=== PATIENT | male | born 1955 | race Hispanic/Latino ===

== ENCOUNTER 2020-05-13 09:10 | Emergency (ER) | payer SELFPAY ==
--- NOTE | 2020-05-13 09:23 | ED.PDOC ---
History of Present Illness - General Time Seen by Provider: 05/13/20 09:11 Source: patient, RN notes reviewed, Vital Signs reviewed, family - History of Present Illness Initial Comments: 64 yo male with unknown history was in restroom when he felt weak and fell in bathroom floor Family found him against wall in bathroom. Patient has been feeling ill for the past week. NO chest pain, denies dizziness, shortness of breath. Just extreme fatigue. Has been having cold like symptoms for the past week per grandson. GCS originally 10 when first arrived. Now GCS 13. no recent travel. Lives with , children and grandson, none who have been sick. Occurred: just prior to arrival Allergies/Adverse Reactions: Allergies NO KNOWN ALLERGY Allergy (Verified 05/13/20 09:56) Home Medications: Ambulatory Orders NK 05/13/20 Review of Systems - Review of Systems Constitutional: States: malaise. Denies: chills, fever, weakness EENTM: States: throat pain. Denies: mouth pain Respiratory: Denies: cough, short of breath Cardiology: Denies: chest pain, palpitations Gastrointestinal/Abdominal: Denies: abdominal pain, diarrhea, nausea, vomiting Genitourinary: Denies: discharge, frequency Musculoskeletal: Denies: back pain, muscle pain, neck pain Skin: Denies: rash Neurological: Denies: headache, numbness, seizure, weakness Endocrine: Denies: unexplained weight gain, unexplained weight loss Hematologic/Lymphatic: Denies: easy bleeding, easy bruising Past Medical History (General) - Patient Medical History Hx Seizures: No Hx Stroke: No Hx Dementia: No Hx Asthma: No Hx of COPD: No Hx Cardiac Disorders: No Hx Congestive Heart Failure: No Hx Pacemaker: No Hx Hypertension: No Hx Thyroid Disease: No Hx Diabetes: No Hx Gastroesophageal Reflux: No Hx Renal Disease: No Hx Cancer: No Hx of HIV: No Hx Hepatitis B: No Hx Hepatitis C: No Hx MRSA: No Hx Other PMH: No Surgical History: no surgical history Physical Exam - Physical Exam General Appearance: Comfortable, No apparent distress, Lethargic, Well Developed, Well Groomed, Well Hydrated, Well Nourished Head Injury: no evidence of injury, other - no sylvester sign or raccoon eyes Eye Exam: bilateral normal, bilateral abnormal EOM ENT Exam: hearing grossly normal, no evidence of ENT injury, no dental injury, other - no hemotypmanum Peripheral Pulses: radial,right: 2+, radial,left: 2+ Cardiovascular/Respiratory: no M/R/G, normal peripheral pulses, no JVD, normal breath sounds, no respiratory distress, bradycardia Gastrointestinal/Abdominal: normal bowel sounds, non tender, soft, no organomegaly, no pulsatile mass Back Exam: normal inspection, no CVA tenderness, no vertebral tenderness Extremity Exam: no evidence of injury, normal range of motion, non-tender, no pedal edema, pelvis stable 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 I feel his syncope was secondary to dehydration and generalized weakness from covid. Recommend follow up on bradycardia. I do not feel patient underwent cardiac syncope. Orthostatics slightly positive with an increase in HR, but no change in BP. Given 1.5 L NS bolus. He was much more alert after the fluids. patient does not have pcp will refer to one. The data reviewed when caring for this patient included: nurse notes, prior records, etc. The history and assessments from nurses notes were reviewed and considered, and the patient's home medication list was also reviewed and considered. My assessment and the results of testing completed here in the ED were discussed with the patient/family. All questions were answered, and they express understanding of my assessment and the plan. They have been instructed to return if their symptoms worsen, and have been asked to follow up with their primary care physician to recheck today's presenting complaint. Strict return precautions given. Jaylin Bunn DO #[id number] 05/13/20 11:07 05/13/20 11:08 - EKG/XRAY/CT EKG: Jez, Sinus Comments: nonspecific ST changes, no prior for comparision, no stemi. XRAY: chest - no acute cardiopulmonary pathology CT: head no acute ICH or IC pathology Departure - Departure Clinical Impression: Sinus bradycardia, COVID-19 Time of Disposition: 10:40 Disposition: Discharge to Home or Self Care Instructions: Bradycardia, Bradycardia (DC), Coronavirus Disease 2019 (COVID- 19) Diet: resume usual diet Activity: increase activity as tolerated Referrals: Bay Us MD [Provisional Staff] - 1-5 Days Home Medications: Ambulatory Orders NK 05/13/20 Print Language: Malaysian
[2020-05-13] MEDS ORDERED: SODIUM CHLORIDE 0.9% 1000ML 1,000 ML IVS ONE (09:27)
--- NOTE | 2020-05-13 09:47 | CT ---
EXAM DESCRIPTION: Head CLINICAL HISTORY: confusion COMPARISON: None available TECHNIQUE: Non contrast cranial CT.This exam was performed according to our departmental dose-optimization program, which includes automated exposure control, adjustment of the mA and/or kV according to patient size and/or use of iterative reconstruction technique. FINDINGS: Ventricles and sulci are unremarkable. There is no hemorrhage or mass. There are no white matter abnormalities detected. The calvarium is unremarkable. The visualized paranasal sinuses and the mastoids are clear. IMPRESSION: Normal CT head Electronically signed by: Keagan Chambers MD 05/13/2020 9:46 AM SHAREPOINT ADMINISTRATOR
--- NOTE | 2020-05-13 09:51 | RAD ---
EXAM DESCRIPTION: Chest,1 View CLINICAL HISTORY: 64 years Male, syncope COMPARISON: None. TECHNIQUE: AP portable chest. FINDINGS: Heart size is normal with normal pulmonary vascularity. No consolidating infiltrate. No pulmonary mass or worrisome nodule. No pneumothorax or pleural effusion. Bones are unremarkable. IMPRESSION: No acute process is identified in the chest. Electronically signed by: Lion Banda MD 05/13/2020 9:50 AM VOLTAGE REGULATOR ASSEMBLER
[2020-05-13] MEDS ORDERED: SODIUM CHLORIDE 0.9% 500ML 500 ML IVS ONE (10:39)
[2020-05-13] MEDS ORDERED: DEXAMETHASONE INJ 10 MG/ML VIAL IV ONE (10:39)
[2020-05-13 11:38] VITALS: BP 144/80; TEMP 97.5; O2SAT 98
== END 2020-05-13 11:30 | disposition home or self-care (01) ==
LOC: ER 09:10
DX: U07.1 COVID-19 (principal); R00.1 Bradycardia, unspecified; R55 Syncope and collapse; W19.XXXA Unspecified fall, initial encounter; Y92.89 Other specified places as the place of occurrence of the external cause
CPT/HCPCS: 36415; 70450; 71045; 80053; 82948; 83605; 83880; 84443; 84484; 85025; 85610; 85730; 87502; 87635; 93005; J1100; J7030; J7040

== ENCOUNTER 2020-05-21 11:41 | Inpatient (IN) | payer SELFPAY ==
[2020-05-21] MEDS ORDERED: SODIUM CHLORIDE 0.9% 1000ML 1,000 ML IVS ONE (11:55)
--- NOTE | 2020-05-21 12:23 | RAD ---
EXAM: Chest,1 View INDICATION: 64 years Male, syncope COMPARISON: Single view of the chest 05/13/2020 FINDINGS: Single view of the chest was performed. Heart size is within normal limits. Low lung volumes. Bilateral peripheral groundglass pulmonary infiltrates have developed in the midlung bilaterally. No pleural effusion. No pneumothorax. The osseous structures are intact. Unremarkable appearance of the visualized upper abdomen. IMPRESSION: Bilateral groundglass pulmonary infiltrates. Imaging features can be seen with COVID-19 pneumonia, though are nonspecific and can occur with a variety of infectious and noninfectious processes. [PneInd] Electronically signed by: Deidra Garcia MD 05/21/2020 12:22 PM [facility]
[2020-05-21] MEDS ORDERED: REMDESIVIR 200 MG in SODIUM CHLORIDE 0.9% 250ML 250 ML IVPB ONE (13:32)
[2020-05-21] MEDS ORDERED: DEXAMETHASONE INJ 4 MG/ML VIAL IV ONE (13:32)
[2020-05-21] MEDS ORDERED: cefTRIAXone SODIUM 1 GM in SODIUM CHL 0.9% 50ML MIN-BAG+ 50 ML IVPB ONE (13:32)
[2020-05-21] MEDS ORDERED: AZITHROMYCIN IV 500 MG in SODIUM CHLORIDE 0.9% 250ML 250 ML IVPB ONE (13:32)
--- NOTE | 2020-05-21 13:44 | ED.PDOC ---
History of Present Illness - General Chief Complaint: Trauma Stated Complaint: fall Time Seen by Provider: 05/21/20 11:45 Source: patient Exam Limitations: no limitations - History of Present Illness Initial Comments: The patient is a 64-year-old male presented emergency room after having a syncopal versus near syncopal event this morning at his house. He was seen about a week ago for the same problem and was diagnosed with coronavirus. The difference today is that the patient is actually hypoxic on room air at rest. The patient is drowsy upon arrival but he does know where he is and what is going on. He is uncertain if he hit his head. He is not having any head or neck pain. He has been having some back and chest discomfort with coughing for the last 3 days. No other falls according to him. He denies other significant past medical history. He was noted to be bradycardic at his last visit but is not today. He does have scattered rhonchi on lung exam but appears to be moving air pretty well. He reports a very thick sputum. He reports having to cough very hard to move anything up and is possible that today his near syncopal event may have been caused by coughing forcefully. He is pleasant and cooperative. No acute distress currently. Oxygen saturations dropped down to around 85% on room air at rest periodically. On average is a are around 88 to 89% on room air. He does correct well with 2 L. Timing/Duration: unsure Severity: moderate Improving Factors: nothing Worsening Factors: other - Coughing Associated Symptoms: chest pain, cough, malaise Allergies/Adverse Reactions: Allergies NO KNOWN ALLERGY Allergy (Verified 05/21/20 12:21) Home Medications: Ambulatory Orders NK 05/13/20 Review of Systems - Review of Systems Constitutional: States: malaise, weakness - Generalized EENTM: States: no symptoms reported Respiratory: States: cough Cardiology: States: chest pain - Musculoskeletal Gastrointestinal/Abdominal: States: no symptoms reported Genitourinary: States: no symptoms reported Musculoskeletal: States: see HPI Skin: States: no symptoms reported Neurological: States: see HPI Endocrine: States: no symptoms reported All other Systems: No Change from Baseline Past Medical History (General) - Patient Medical History Hx Seizures: No Hx Stroke: No Hx Dementia: No Hx Asthma: No Hx of COPD: No Hx Cardiac Disorders: No Hx Congestive Heart Failure: No Hx Pacemaker: No Hx Hypertension: No Hx Thyroid Disease: No Hx Diabetes: No Hx Gastroesophageal Reflux: No Hx Renal Disease: No Hx Cancer: No Hx of HIV: No Hx Hepatitis C: No Hx MRSA: No Surgical History: no surgical history - Vaccination History Hx Tetanus, Diphtheria Vaccination: No Hx Influenza Vaccination: No Hx Pneumococcal Vaccination: No - Social History Hx Tobacco Use: No Hx Alcohol Use: No Family Medical History - Family History Mother Family History: Unknown Living Status: Unknown Physical Exam - Physical Exam General Appearance: Agitated, No apparent distress, Other - The patient is very drowsy Eye Exam: bilateral normal Ears, Nose, Throat: hearing grossly normal, normal pharynx Neck: full range of motion, supple Respiratory: no respiratory distress, no accessory muscle use, rhonchi Cardiovascular/Chest: normal peripheral pulses, regular rate, rhythm, no edema Peripheral Pulses: radial,right: 2+, radial,left: 2+ Gastrointestinal/Abdominal: non tender, soft Rectal Exam: deferred Back Exam: no CVA tenderness, no vertebral tenderness Extremity: normal range of motion, non-tender, normal inspection, no pedal edema, normal capillary refill 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, alert, normal mood/affect, oriented x 3 Skin Exam: normal color Comments: Vital Signs - 24 hr 05/21/20 05/21/20 05/21/20 11:48 11:50 12:10 Temperature 98.5 F Pulse Rate [ 133 H Left Radial] Respiratory 20 20 Rate Blood Pressure 133/64 [Right Arm] O2 Sat by Pulse 97 90 L Oximetry 05/21/20 05/21/20 05/21/20 13:26 13:27 13:29 Temperature Pulse Rate [ 76 70 66 Left Radial] Respiratory 22 22 24 Rate Blood Pressure 113/81 114/73 120/70 [Right Arm] O2 Sat by Pulse 96 98 96 Oximetry Progress - Progress Progress: 05/21/20 13:46 The patient is a 64-year-old male presented this morning secondary to a near syncopal episode. The patient had 1 of these about a week ago as well when he was diagnosed with coronavirus. He is now hypoxic however. He is correcting well with supplemental oxygen. The patient will be admitted for management of above. I do believe that it would be worthwhile to have the patient on telemetry monitoring to make sure he is not having periodic episodes of arrhythmia that can be causing her syncopal events. The patient is being started on Rocephin, azithromycin, remdesivir and dexamethasone. The patient may benefit from a trial of nebulizer treatments and possibly Mucomyst inhaled treatments to thin out the secretions to improve the cough. Admit for further care and monitoring. sharona bryan [phone] - Results/Orders Results/Orders: Chest x-ray shows scattered infiltrates consistent with coronavirus. EKG patient does normal sinus rhythm at 63 bpm. Normal axis. Normal R wave progression. Mild left atrial dilation. No ST segment or T wave changes indicative of acute ischemia. Normal QT interval. Laboratory Tests 05/21/20 05/21/20 05/21/20 11:50 11:50 11:50 WBC 7.6 RBC 5.26 Hgb 15.6 Hct 46.1 MCV 87.6 MCH 29.7 MCHC 33.9 RDW 13.6 Plt Count 230 MPV 7.4 Absolute Neuts (auto) 6.10 Absolute Lymphs (auto) 1.20 Absolute Monos (auto) 0.30 Absolute Eos (auto) 0.00 Absolute Basos (auto) 0.10 Neutrophils % 79.2 H Lymphocytes % 15.2 L Monocytes % 4.3 Eosinophils % 0.1 L Basophils % 1.2 PT INR PTT (SP) Fibrinogen D-Dimer, Quantitative Sodium 134 L Potassium 4.6 Chloride 94 L Carbon Dioxide 27 Anion Gap 17.6 BUN 12 Creatinine 1.03 BUN/Creatinine Ratio 11.7 Random Glucose 214 H Serum Osmolality 274.4 L Lactic Acid Calcium 8.4 Magnesium 2.2 Ferritin 286.7 Total Bilirubin 0.9 AST 62 H ALT 47 Alkaline Phosphatase 77 LD Total 253 H Creatine Kinase 308 H* CK-MB (CK-2) 0.8 CK-MB (CK-2) % Not Reportable Troponin I < 0.02 C-Reactive Protein 8.2 H* B-Natriuretic Peptide < 15.0 Serum Total Protein 7.7 Albumin 3.5 Globulin 4.2 H Albumin/Globulin Ratio 0.8 L TSH 4.72 Urine Color Urine Appearance Urine pH Ur Specific [place] Urine Protein Urine Glucose (UA) Urine Ketones Urine Blood Urine Nitrite Urine Bilirubin Urine Urobilinogen Ur Leukocyte Esterase Urine RBC Urine WBC Ur Epithelial Cells Amorphous Sediment Urine Bacteria Urine Mucus 05/21/20 05/21/20 05/21/20 11:50 11:50 13:20 WBC RBC Hgb Hct MCV MCH MCHC RDW Plt Count MPV Absolute Neuts (auto) Absolute Lymphs (auto) Absolute Monos (auto) Absolute Eos (auto) Absolute Basos (auto) Neutrophils % Lymphocytes % Monocytes % Eosinophils % Basophils % PT 10.3 INR 1.04 PTT (SP) 28.6 Fibrinogen 614 H D-Dimer, Quantitative 322.0 Sodium Potassium Chloride Carbon Dioxide Anion Gap BUN Creatinine BUN/Creatinine Ratio Random Glucose Serum Osmolality Lactic Acid 1.7 Calcium Magnesium Ferritin Total Bilirubin AST ALT Alkaline Phosphatase LD Total Creatine Kinase CK-MB (CK-2) CK-MB (CK-2) % Troponin I C-Reactive Protein B-Natriuretic Peptide Serum Total Protein Albumin Globulin Albumin/Globulin Ratio TSH Urine Color Yellow Urine Appearance Clear Urine pH 7.0 Ur Specific [place] 1.020 Urine Protein 30 Urine Glucose (UA) Negative Urine Ketones Trace Urine Blood Negative Urine Nitrite Negative Urine Bilirubin Negative Urine Urobilinogen 4.0 H Ur Leukocyte Esterase Negative Urine RBC 0 Urine WBC 1-3 Ur Epithelial Cells 0-1 Amorphous Sediment Trace Urine Bacteria 0 Urine Mucus Trace Departure - Departure Clinical Impression: Pneumonia due to human coronavirus, Syncope, near Disposition: Admit Patient Departure Forms: ED Discharge - Pt. Copy, Patient Portal Self Enrollment Home Medications: Ambulatory Orders NK 05/13/20 Decision To Admit - Decistion To Admit Decision to Admit Reason: Medical Nature Decision to Admit Date: 05/21/20 Decision to Admit Time: 13:48
--- NOTE | 2020-05-21 14:02 | HP ---
SUPERVISING PHYSICIAN: Russel Jacobson MD CHIEF COMPLAINT: Passing out at home. HISTORY OF PRESENT ILLNESS: This is a 64 year-old male patient who came to the Emergency Room today after having a syncopal versus near syncopal episode. It was not witnessed and he was not sure if he actually passed out or not. He was seen in the Emergency Room about a week ago for the same problem and was diagnosed with coronavirus at that time. His electrolytes were fairly stable and his labs were fairly stable but at this visit his labs are unremarkable but he is in the mid to upper 80s on room air. He is on 2 liters nasal cannula. He does correct to the low 90s for is 02 saturations. He has had a cough with thick tenacious sputum. His labs show a CBC that is unremarkable other than he has a mild left shift on his differential. Fibrinogen is 614, D-dimer 322. Sodium is slightly low at 134 with a chloride of 94, glucose 214, lactic acid 1.7. AST was 62, LD 253, creatinine kinase 301. Troponin less than 0.02. C- reactive protein 8.2, TSH of 4.72. Urinalysis was unremarkable. Urine drug screen was negative. Sputum sample for culture was taken. Blood cultures were drawn. Chest x-ray shows bilateral ground glass pulmonary infiltrates, imaging features can be sen with Covid-19 pneumonia. He was given azithromycin, Rocephin, Remdesivir and Decadron in the Emergency Room. Due to his hypoxia, I was called for admission. The patient is mostly Portuguese speaking but he does understand simple questions that are asked in [place] Citizen and most of the history was taken from hid daughter. PAST MEDICAL HISTORY: None. PAST SURGICAL HISTORY: None. CURRENT MEDICATIONS: None. ALLERGIES: NO KNOWN DRUG ALLERGIES. FAMILY HISTORY: SOCIAL HISTORY: He lives in [place], he is . He denies any tobacco use. He quit drinking alcoholic beverages approximately 30 years ago. REVIEW OF SYSTEMS: GENERAL: Positive for fatigue, negative for fever, chills or weight changes. HEENT: Negative for sinus symptoms, ear pain, vision changes, sore throat. RESPIRATORY: Positive for cough and shortness of breath, negative for wheezing. CARDIAC: Negative for chest pain, palpitations, tachycardia. GI: Negative for nausea, vomiting or diarrhea or constipation. GENITOURINARY: Negative for hematuria, dysuria, polyuria. MUSCULOSKELETAL: Negative for arthralgias, myalgias. SKIN: Negative for lesions or rashes. NEUROLOGICAL: As per the history of present illness. Negative for seizures. PHYSICAL EXAMINATION: VITAL SIGNS: Temperature 100.5, heart rate 73, blood pressure 120/76, respiratory rate 30, oxygen saturation 94% on 3 liters nasal cannula. GENERAL: This is a 64 year-old male patient who is lying in his hospital bed. He is in no acute distress. HEENT: Normocephalic and atraumatic. Pupils are equal and reactive. Oropharynx is clear. NECK: Supple with full range of motion. CHEST: Scattered rhonchi throughout. No wheezes noted. He is tachypneic that worsens with exertion. CARDIOVASCULAR: Regular rate and rhythm. ABDOMEN: Soft, nondistended, non-tender. Bowel sounds positive. EXTREMITIES: No cyanosis, clubbing, or edema. NEUROLOGIC: He is awake, alert, and oriented x. Cranial nerves II through XII are grossly intact as tested. SKIN: [place], warm and dry. Labs and films are as per the history of present illness. ASSESSMENT: 1. Covid-19 pneumonitis. 2. Syncopal versus near syncopal episode secondary to hypoxia. PLAN: The patient has been admitted to the hospital. He has been placed on the Covid protocol with labs, Remdesivir, azithromycin and Decadron. He will have Lovenox for DVT prophylaxis and a PPI for ulcer prophylaxis. I have also ordered align and guaifenesin. He will have aggressive pulmonary hygiene and p.r.n. and scheduled albuterol, titrate his oxygen off as tolerated. Will monitor and treat as needed. #[id number] [facility]
[2020-05-21] MEDS ORDERED: ACETAMINOPHEN 325 MG TAB PO PRN (15:35)
[2020-05-21] MEDS ORDERED: SODIUM CHLORIDE 0.9% (FLUSH) 10 ML SYG ONE (16:38)
[2020-05-21] MEDS ORDERED: SODIUM CHLORIDE 0.9% (FLUSH) 10 ML SYG IV PRN (16:45)
[2020-05-21] MEDS ORDERED: ONDANSETRON INJ 4 MG/2 ML VIAL IV PRN (16:45)
[2020-05-21] MEDS ORDERED: ALBUTEROL INHALER 64 PUFF/8GM INH PRN (16:53)
[2020-05-21] MEDS ORDERED: IV SET AND CAP CHANGE INJ INJ SCH (17:00)
[2020-05-21] MEDS: ALBUTEROL INHALER 64 PUFF/8GM INH SCH (19:45)
[2020-05-21] MEDS: ENOXAPARIN SODIUM 40 MG/0.4 ML SYG SUBCU SCH (20:42)
[2020-05-21] MEDS: guaiFENesin ER TAB 600 MG TAB PO SCH (20:42)
[2020-05-21] MEDS: SODIUM CHLORIDE 0.9% (FLUSH) 10 ML SYG IV SCH (20:42)
[2020-05-21] MEDS: BIFIDOBACTERIUM INFANTIS 4 MG CAP PO SCH (20:42)
[2020-05-22] MEDS ORDERED: PANTOPRAZOLE SODIUM IV 40 MG VIAL ONE (04:39)
[2020-05-22] MEDS ORDERED: PANTOPRAZOLE SODIUM IV 40 MG VIAL IV SCH (06:30)
--- NOTE | 2020-05-22 06:42 | RAD ---
EXAM: XR CHEST 1 VIEW HISTORY: 64 years, Male, covid TECHNIQUE: Chest,1 View COMPARISON: May 21, 2020 FINDINGS: Normal mediastinal cardiac silhouette. Again seen are linear opacities in the peripheral mid lung rodríguez nonspecific possible infectious process and/or atelectatic in etiology. No effusions. No acute findings in the osseous structures. IMPRESSION: No significant change. Electronically signed by: Chikis Benavides MD 05/22/2020 6:40 AM DESK DIRECTOR
[2020-05-22] MEDS ORDERED: cefTRIAXone SODIUM 1 GM VIAL ONE (08:20)
[2020-05-22] MEDS ORDERED: SODIUM CHLORIDE 0.9% 250ML 250 ML ONE ×2 (08:20→10:02)
[2020-05-22] MEDS ORDERED: SODIUM CHL 0.9% 50ML MIN-BAG+ 50 ML IVPB ONE (08:20)
[2020-05-22] MEDS ORDERED: AZITHROMYCIN IV 500 MG VIAL IVPB ONE (08:20)
[2020-05-22] MEDS: ALBUTEROL INHALER 64 PUFF/8GM INH SCH ×4 (08:25→20:27)
[2020-05-22] MEDS: cefTRIAXone SODIUM 1 GM in SODIUM CHL 0.9% 50ML MIN-BAG+ 50 ML IVPB SCH (08:28)
[2020-05-22] MEDS: BIFIDOBACTERIUM INFANTIS 4 MG CAP PO SCH ×2 (08:29→20:04)
[2020-05-22] MEDS: guaiFENesin ER TAB 600 MG TAB PO SCH ×2 (08:29→20:04)
[2020-05-22] MEDS: DEXAMETHASONE INJ 4 MG/ML VIAL IV SCH (08:29)
[2020-05-22] MEDS: SODIUM CHLORIDE 0.9% (FLUSH) 10 ML SYG IV SCH ×2 (08:57→20:05)
[2020-05-22] MEDS: AZITHROMYCIN IV 500 MG in SODIUM CHLORIDE 0.9% 250ML 250 ML IVPB SCH (09:00)
[2020-05-22] MEDS ORDERED: REMDESIVIR IV 100 MG VIAL ONE (10:02)
[2020-05-22] MEDS: REMDESIVIR 100 MG in SODIUM CHLORIDE 0.9% 250ML 250 ML IVPB SCH (11:06)
--- NOTE | 2020-05-22 18:50 | PN ---
SUPERVISING PHYSICIAN: Russel Jacobson MD DATE: 05/22/20 SUBJECTIVE: The patient looks to be comfortable. He is alert without any major complaint. He is still unaware if he actually passed out or not but has not been showing any neurological findings or deficits. I did review his Emergency Room record and they did show vital signs in the Emergency Room that were essentially within normal limits. He does remain afebrile. He is maintaining his 02 saturations on minimal oxygen requirements. OBJECTIVE: VITAL SIGNS: Temperature 98.4, pulse 57, blood pressure 117/84, respirations 18, oxygen saturation 92% on 2 liter nasal cannula. GENERAL: The patient is resting comfortably. He does not appear to be in any distress. CHEST: Lung sounds just a little diminished towards the bases, otherwise clear. HEART: Regular rate and rhythm. ABDOMEN: Soft, non-tender, positive bowel sounds. EXTREMITIES: Without edema. NEUROLOGICAL: No motor deficits are noted. Cranial nerves II through XII appear to be grossly intact. Facial features were symmetrical. Extraocular movements within normal limits. He alert and oriented x 3. SKIN: Warm, pink and dry. LABORATORY: White count 6,500, hemoglobin 14.8, hematocrit 42.9. Platelet count 210,000, differential shows to be without a left shift, just a low leukocyte count. Coagulation studies show normal D-dimer. PTT little elevated at 33.1, fibrinogen 623. Chemistries show normal electrolytes, creatinine 0.7. Hemoglobin A1c 5.8. Calcium 8.0 which corrects to 8.1 for albumin of 3.1. Liver functions show elevation of AST to 135, ALT 108, alkaline phosphatase remains within normal limits. C-reactive protein 8.2. MICROBIOLOGY: Blood cultures show no growth at 24 hours. Sputum culture pending. RADIOLOGY: Recent chest x-ray this morning per radiology interpretation single view chest shows no significant changes. Again seen are opacities in the peripheral mid lung rodríguez, nonspecific. ASSESSMENT: 1. Covid-19 pneumonitis. 2. Near syncopal episode likely secondary to hypoxia with no obvious neurological symptoms noted. PLAN: Will continue with Covid-19 protocol, labs, Remdesivir, azithromycin and Decadron, Lovenox and Protonix. I will start him on some Align. He is not showing any neurological symptoms, vital signs were normal in the Emergency Room but will go ahead and get an ultrasound on Sunday. I don't anticipate he will go home before then and will further evaluation his carotids. He does remain on telemetry and does not show any abnormal rhythms. We feel like most of his symptoms were probably due to hypoxia. He is still requiring a little oxygen. Will work to titrate that down as possible. I would anticipate probably at least another 48 hours of hospitalization. Until we can transition him to outpatient management, we will continue to monitor and treat as needed. #[id number] [facility]
[2020-05-22] MEDS ORDERED: BIFIDOBACTERIUM INFANTIS 4 MG CAP ONE (19:20)
[2020-05-22] MEDS ORDERED: ENOXAPARIN SODIUM 40 MG/0.4 ML SYG SUBCU ONE (19:21)
[2020-05-22] MEDS ORDERED: guaiFENesin ER TAB 600 MG TAB ONE (19:21)
[2020-05-22] MEDS: ENOXAPARIN SODIUM 40 MG/0.4 ML SYG SUBCU SCH (20:04)
[2020-05-23] MEDS: PANTOPRAZOLE SODIUM TAB 40 MG PO SCH (06:02)
[2020-05-23] MEDS: ALBUTEROL INHALER 64 PUFF/8GM INH SCH ×4 (08:41→20:55)
[2020-05-23] MEDS ORDERED: guaiFENesin ER TAB 600 MG TAB ONE ×2 (09:20→18:51)
[2020-05-23] MEDS ORDERED: BIFIDOBACTERIUM INFANTIS 4 MG CAP ONE ×2 (09:20→18:51)
--- NOTE | 2020-05-23 10:15 | RAD ---
EXAMINATION: Chest,1 View. HISTORY: 64 years Male. covid. . TECHNIQUE: XR CHEST 1 VIEW COMPARISON: 05/22/2020. FINDINGS: Linear opacity with small patchy component again noted in right midlung. Patchy and interstitial opacity again noted in left midlung laterally with slight consolidation. These bilateral infiltrates demonstrate relatively peripheral predominance. They are relatively unchanged. No evidence of pneumothorax. No radiographically visible pleural effusion. Cardiac silhouette size is normal without vascular congestion. No visible acute displaced fracture in the regional skeleton. IMPRESSION: Unchanged bilateral pulmonary infiltrates may again be secondary to edema and/or atelectasis. Differential again includes viral or bacterial pneumonia. While not specific, appearance can be seen with Covid-19 pneumonia. Electronically signed by: Wan Naik MD 05/23/2020 10:13 AM [facility]
[2020-05-23] MEDS: REMDESIVIR 100 MG in SODIUM CHLORIDE 0.9% 250ML 250 ML IVPB SCH (10:49)
[2020-05-23] MEDS: DEXAMETHASONE INJ 4 MG/ML VIAL IV SCH (10:49)
[2020-05-23] MEDS: guaiFENesin ER TAB 600 MG TAB PO SCH ×2 (10:49→20:14)
[2020-05-23] MEDS: BIFIDOBACTERIUM INFANTIS 4 MG CAP PO SCH ×2 (10:49→20:14)
[2020-05-23] MEDS: cefTRIAXone SODIUM 1 GM in SODIUM CHL 0.9% 50ML MIN-BAG+ 50 ML IVPB SCH (13:39)
[2020-05-23] MEDS: AZITHROMYCIN IV 500 MG in SODIUM CHLORIDE 0.9% 250ML 250 ML IVPB SCH (13:39)
[2020-05-23] MEDS: SODIUM CHLORIDE 0.9% (FLUSH) 10 ML SYG IV SCH ×2 (13:40→20:14)
--- NOTE | 2020-05-23 15:44 | PN ---
SUPERVISING PHYSICIAN: Russel Jacobson MD DATE: 05/23/20 SUBJECTIVE: The patient feels a little short of breath but nothing major. He has really not been around the room to fully assess his ambulation. Otherwise, he is still only requiring 2 liters to maintain 93 to 95% but again, that is at rest. OBJECTIVE: VITAL SIGNS: Temperature 98.2, pulse 56, blood pressure 117/69, respirations 18, oxygen saturation 93% on 2 liter nasal cannula. GENERAL: The patient is resting comfortably. He does not appear to be in any distress. CHEST: Lung sounds just diminished towards the bases. HEART: Regular rate and rhythm. ABDOMEN: Soft, non-tender, positive bowel sounds. EXTREMITIES: Without edema. NEUROLOGICAL: Alert and oriented x 3. LABORATORY: CBC shows to be stable with a white count of 8,700, hemoglobin 14.4, hematocrit 41.5. Platelet count 233,000, differential shows just a slight left shift. Coagulation studies show D-dimer remaining normal. Chemistries show anion gap a little elevated at 18.1, otherwise electrolytes within normal limits. Creatinine 0.78, calcium 8.2, magnesium 2.1, liver functions showing some elevation, again AST at 123, ALT is up to 146. C-reactive protein down to 4.1 from 8.2 on admission. MICROBIOLOGY: Sputum culture was cancelled due to 10 or greater epithelial cells indicating oropharyngeal contamination. Blood cultures remain negative at 48 hours. RADIOLOGY: Chest x-ray this morning per radiology interpretation single view chest shows unchanged pulmonary infiltrates secondary to edema and/or atelectasis with some patchy and interstitial opacities again noted in the mid lung, lateral and slight consolidation. ASSESSMENT: 1. Covid-19 pneumonitis. 2. Near syncopal episode likely secondary to hypoxia with no obvious neurological symptoms noted. PLAN: Will continue with current treatment plan with Remdesivir, azithromycin and Decadron, Levaquin and Protonix. He is on Align now. His neurological status remains stable. Will probably do carotids in the morning just given that he did have a questionable syncopal episode prior to admission. Will work to titrate his oxygen down. I anticipate hopefully being able to discharge probably tomorrow or at least by Sunday but until then, we will continue to monitor and treat as needed. #[id number] [facility]
[2020-05-23] MEDS ORDERED: ENOXAPARIN SODIUM 40 MG/0.4 ML SYG SUBCU ONE (18:51)
[2020-05-23] MEDS: ENOXAPARIN SODIUM 40 MG/0.4 ML SYG SUBCU SCH (20:14)
[2020-05-24] MEDS: PANTOPRAZOLE SODIUM TAB 40 MG PO SCH (06:28)
[2020-05-24] MEDS: ALBUTEROL INHALER 64 PUFF/8GM INH SCH ×2 (08:25→13:20)
[2020-05-24] MEDS: guaiFENesin ER TAB 600 MG TAB PO SCH (10:11)
[2020-05-24] MEDS: DEXAMETHASONE INJ 4 MG/ML VIAL IV SCH (10:11)
[2020-05-24] MEDS: BIFIDOBACTERIUM INFANTIS 4 MG CAP PO SCH (10:11)
[2020-05-24] MEDS: SODIUM CHLORIDE 0.9% (FLUSH) 10 ML SYG IV SCH (10:12)
[2020-05-24] MEDS: cefTRIAXone SODIUM 1 GM in SODIUM CHL 0.9% 50ML MIN-BAG+ 50 ML IVPB SCH (10:12)
[2020-05-24] MEDS: AZITHROMYCIN IV 500 MG in SODIUM CHLORIDE 0.9% 250ML 250 ML IVPB SCH (10:12)
--- NOTE | 2020-05-24 11:59 | US ---
EXAM DESCRIPTION: Carotid Duplex: ULTRASOUND. CLINICAL HISTORY: 64 years Male syncope COMPARISON: None. TECHNIQUE: Transcutaneous scanning utilizing ahumada-scale and Doppler modes to evaluate the bilateral carotid systems and vertebral arteries. Percentage of diameter of stenosis or no stenosis recorded will be based upon NASCET criteria. FINDINGS: Peak systolic/end diastolic velocities (CM-Sec) CCA Right 87/12 Left 88/18. ICA Right proximal 30/11, distal 42/18. Left proximal 55/10, mid 44/17.. Vertebral Right 31/10 Left 87/13. ECA (PS Only) Right 43 left 38. ICA/CCA peak systolic velocity ratio: Right 0.7 Left 0.6 ICA/CCA end diastolic velocity ratio: Right 1.5 Left 0.6 Vertebral arteries: antegrade flow. Comments: Bilateral atherosclerotic calcifications in the common carotid bifurcations. Less than 20% area diameter stenosis right CCA bulb. IMPRESSION: 1. Doppler evaluation of the bilateral carotid systems and vertebral arteries shows no hemodynamically significant stenoses (less than 70%). 2. No significant amount of plaque in the carotid arteries bilaterally. Bilateral vertebral arteries showed antegrade-cephalad flow. Electronically signed by: Live Culver MD 05/24/2020 11:57 AM [facility]
[2020-05-24] MEDS ORDERED: REMDESIVIR 100 MG in SODIUM CHLORIDE 0.9% 250ML 250 ML IVPB SCH (12:00)
[2020-05-24 13:55] VITALS: BP 110/67; TEMP 97.7; O2SAT 95
--- NOTE | 2020-05-25 10:41 | DS ---
SUPERVISING PHYSICIAN: Bay Us MD ADMISSION DIAGNOSIS: 1. COVID-19 pneumonitis. 2. Syncopal versus near syncopal episode secondary to hypoxia. DISCHARGE DIAGNOSIS: 1. COVID-19 pneumonitis. 2. Near syncopal episode likely secondary to hypoxia with no obvious neurological symptoms noted and no findings on carotid studies to indicate any complications neurologically. REASON FOR HOSPITALIZATION: This is a 64-year-old male patient who came to the Emergency Room today after having a syncopal versus near syncopal episode. It was not witnessed and he was not sure if he actually passed out or not. He was seen in the Emergency Room about a week ago for the same problem and was diagnosed with coronavirus at that time. His electrolytes were fairly stable and his labs were fairly stable but at this visit his labs are unremarkable but he is in the mid to upper 80s on room air. He is on 2 liters nasal cannula. He does correct to the low 90s for his O2 saturations. He has had a cough with thick tenacious sputum. His labs show a CBC that is unremarkable other than he has a mild left shift on his differential. Fibrinogen is 614, D-dimer 322. Sodium is slightly low at 134 with a chloride of 94, glucose 214, lactic acid 1.7. AST was 62, LD 253, creatinine kinase 301. Troponin less than 0.02. C- reactive protein 8.2, TSH of 4.72. Urinalysis was unremarkable. Urine drug screen was negative. Sputum sample for culture was taken. Blood cultures were drawn. Chest x-ray shows bilateral ground glass pulmonary infiltrates, imaging features can be seen with COVID-19 pneumonia. He was given azithromycin, Rocephin, Remdesivir and Decadron in the Emergency Room. Due to his hypoxia, I was called for admission. The patient is mostly Gabonese speaking but he does understand simple questions that are asked in Welsh and most of the history was taken from his daughter. LABORATORY: White count on discharge 8,700, hemoglobin 14.4, hematocrit 41.5, platelet count 233,000. Differential does show a slight left shift. Coagulation studies showed normal D-dimer. Fibrinogen slightly elevated at 525. Other coagulation studies within normal limits. On discharge, electrolytes were normal. Creatinine 0.76. Calcium 8.2. Liver functions did show some elevation, but returning to baseline levels. AST 75, ALT 136. C-reactive protein was down to 2.1 from initial admission of 8.2. Initial prolactin was elevated at 26.4. Urinalysis was essentially within normal limits and unremarkable. Urine drug screen was negative for any substance abuse as tested. MICROBIOLOGY: Final sputum culture was not completed due to poor specimen. Blood cultures were completed and showed no growth at 3 days. RADIOLOGY: Final chest x-ray on 05/23/20 per radiologic interpretation showed pulmonary infiltrates again seen secondary to edema or atelectasis. See that report for details. He also had a carotid artery ultrasound and per radiologic interpretation showed no hemodynamically significant stenosis in the bilateral carotid systems and vertebral arteries with less than 70%. There was no significant amount of plaque within the carotid arteries bilaterally. See that report for details. EKG on admission showed a sinus rhythm at 63 beats per minute. No ST segment or T-wave changes to indicate acute ischemia. HOSPITAL COURSE: Mr. Miguel Angel Bunn was admitted for treatment of COVID pneumonia and was treated with Rocephin, azithromycin, Remdesivir, Decadron, Align, Protonix and aggressive pulmonary hygiene. He did initially require some oxygen for supplementation, initially showing maximum requirement of oxygen at 2 liters. Prior to discharge, vital signs showed he was maintaining O2 saturations at 95% on room air. Blood pressure 110/67, heart rate 54, temperature 97.7. It was felt he had shown good clinical improvement in regards to treatment for COVID. Therefore, he was discharged to continue with outpatient management to followup with [facility]. PLAN: Mr. Miguel Angel Bunn will need followup with [facility] as he does not have a primary care provider. He was not requiring any oxygen on discharge. He was continued on medications at discharge to include Align, Decadron, guaifenesin, cefdinir, albuterol and Tessalon Perles. He was to resume his usual diet. He was to increase his activity as tolerated. He was again reinforced on good bronchial hygiene, continued with incentive spirometry and he was to increase activity as tolerated to prevent any worsening of his pneumonia. Medications prescribed at discharge included: 1. Align 4 mg twice daily, #30, no refills. 2. Decadron 6 mg daily for 7 days, no refills. 3. Guaifenesin 600 mg twice daily as needed. 4. Cefdinir 300 mg twice daily, #14, no refills. 5. Tessalon Perles 100 mg 3 times a day as needed, #20, no refills. 6. Albuterol handheld inhaler 2 puffs q.4h as needed, #1 inhaler, no refills. CONDITION ON DISCHARGE: Stable and improved. DISPOSITION: The patient was discharged home. #[id number] [facility]
== END 2020-05-24 14:55 | disposition home or self-care (01) | DRG 177 ==
LOC: ER 11:41 → OBSVTOIN 14:00 → MS 14:00
PROVIDERS: ADMIT Nurse Practitioner Acute Care; ATTEND Nurse Practitioner Family
PROC: XW033E5 Introduction of Remdesivir Anti-infective into Peripheral Vein, Percutaneous Approach, New Technology Group 5 (ICD-10-PCS; principal; 2020-05-21)
DX: U07.1 COVID-19 (principal); J12.89 Other viral pneumonia; R09.02 Hypoxemia; R55 Syncope and collapse